=== PATIENT | female | born 2000 | race Caucasian/White ===

== ENCOUNTER 2024-05-01 15:35 | Inpatient (IN) | payer OTHER ==
[2024-05-01] MEDS ORDERED: Carboprost Tromethamine 250 MCG/1 mL Vial IM PRN (16:43)
[2024-05-01] MEDS ORDERED: Misoprostol 200 MCG Tab PO PRN (16:43)
[2024-05-01] MEDS ORDERED: Lidocaine 1% 50 ML MDV INJECT PRN (16:43)
[2024-05-01] MEDS ORDERED: Methylergonovine 0.2 MG/1 ML Amp IM PRN (16:43)
[2024-05-01] MEDS ORDERED: Sodium Chloride 0.9% 20 ML SDV IV PRN (16:43)
[2024-05-01] MEDS ORDERED: Water For Irrigation,Sterile 1,000 ML Container IRR PRN (16:43)
[2024-05-01] MEDS ORDERED: Butorphanol 2 MG/ML SDV IVPUSH PRN (16:43)
[2024-05-01] MEDS ORDERED: Sodium Chloride 0.9% 2.5 ML Syringe FLUSH PRN (16:43)
[2024-05-01] MEDS ORDERED: Sodium Chloride 0.9% 10 ML Syringe FLUSH PRN (16:43)
[2024-05-01] MEDS ORDERED: Tranexamic Acid in NACL,ISO-OS 1,000 MG in Premix Bag 1 BAG IV PRN (16:43)
[2024-05-01] MEDS ORDERED: ePHEDrine 50 MG/ML SDV IVPUSH PRN (16:55)
[2024-05-01] MEDS ORDERED: dexmedeTOMIDine HCl 200 MCG/2 ML SDV EPIDUR SCH (17:00)
[2024-05-01 18:09] LABS: HEMATOCRIT 38.5 % (37.0-47.0); HEMOGLOBIN 12.9 g/dL (12.0-16.0); MEAN CORPUSCULAR HEMOGLOBIN 28.2 pg (28.0-32.0); MEAN CORPUSCULAR HGB CONC 33.5 g/dL (32.0-36.0); MEAN CORPUSCULAR VOLUME 84.1 fL (83.0-99.0); MEAN PLATELET VOLUME 13.1 fL (9.4-12.3); PLATELET COUNT,PLT 192 K/uL (150-400); RED BLOOD CELL COUNT 4.58 M/uL (4.10-5.30); WHITE BLOOD CELL COUNT,WBC 13.55 K/uL (3.9-11.3)
[2024-05-01 18:42] LABS: A/G RATIO 0.7 (0.9-1.6); ALBUMIN 2.8 g/dL (3.4-5.0); BILIRUBIN TOTAL 0.4 mg/dL (0.2-1.0); CALCIUM 9.4 mg/dL (8.5-10.1); CARBON DIOXIDE,CO2 18.9 mmol/L (21.0-32.0); CREATININE 0.5 mg/dL (0.6-1.0); EST CRCL DRUG DOSING (CG) 147.23 mL/min; POTASSIUM,K 3.8 mmol/L (3.5-5.1); PROTEIN TOTAL,TP 7.1 g/dL (6.4-8.2); URIC ACID 4.9 mg/dL (2.6-7.2)
[2024-05-01] MEDS: Ondansetron 4 MG/2 ML SDV IVPUSH PRN (19:50)
[2024-05-01] MEDS: Lactated Ringers 1,000 ML IV SCH (20:23)
[2024-05-01] MEDS: Ropivacaine HCl/PF 400 MG in Premix Bag 1 BAG EPIDUR SCH (20:51)
[2024-05-01] MEDS: Phenylephrine HCl In 0.9% NaCl 1 MG/10 ML Syringe IVPUSH PRN (21:30)
[2024-05-01] MEDS ORDERED: Misoprostol 25 MCG (1/4 of 100 MCG) Tab VAG PRN (21:49)
[2024-05-01] MEDS: Misoprostol 25 MCG (1/4 of 100 MCG) Tab VAG PRN (22:23)
[2024-05-02] MEDS: Oxytocin/0.9 % Sodium Chloride 30 UNIT/500 ML BAG IV SCH (06:32)
[2024-05-02] MEDS ORDERED: Misoprostol 200 MCG Tab RECTAL PRN (07:34)
[2024-05-02] MEDS ORDERED: Benzocaine/Menthol 20%-0.5% Spray 78 GM Cannister TOP PRN (07:34)
[2024-05-02] MEDS ORDERED: Lanolin 100% Cream 7 GM Tube TOP PRN (07:34)
[2024-05-02 07:42] LABS: PH,UMBILICAL ARTERIAL 7.206 (7.18-7.38); PH,UMBILICAL VENOUS 7.332 (7.25-7.45)
[2024-05-02] MEDS: Witch Hazel Medicated Pads 40/Jar TOP PRN (08:17)
[2024-05-02] MEDS: Prenatal Multivitamin with Calcium/Folic Acid/Iron Tab PO SCH (08:17)
[2024-05-02] MEDS: Acetaminophen 500 MG Tab PO PRN (08:17)
[2024-05-02] MEDS: Ibuprofen 800 MG Tab PO PRN (08:18)
[2024-05-02] MEDS: Docusate Sodium 100 MG Cap PO PRN (20:15)
[2024-05-03 06:10] LABS: HEMATOCRIT 30.1 % (37.0-47.0)
== END 2024-05-03 13:10 | disposition home or self-care (01) | DRG 807 ==
LOC: MW.OBCHECK 15:35 → MW.OB 15:37 → MW.OBCHECK 16:42 → MW.OB 16:43 → OBSVTOIN 05-02 06:20 → MW.OB 05-02 10:45
PROVIDERS: ADMIT Obstetrics & Gynecology; ATTEND Obstetrics & Gynecology
PROC: 10E0XZZ Delivery of Products of Conception, External Approach (ICD-10-PCS; principal; 2024-05-02)
PROC: 0KQM0ZZ Repair Perineum Muscle, Open Approach (ICD-10-PCS; 2024-05-02)
PROC: 3E0P7VZ Introduction of Hormone into Female Reproductive, Via Natural or Artificial Opening (ICD-10-PCS; 2024-05-02)
PROC: 3E0R3BZ Introduction of Anesthetic Agent into Spinal Canal, Percutaneous Approach (ICD-10-PCS; 2024-05-02)
PROC: 00HU33Z Insertion of Infusion Device into Spinal Canal, Percutaneous Approach (ICD-10-PCS; 2024-05-02)
PROC: 3E0334Z Introduction of Serum, Toxoid and Vaccine into Peripheral Vein, Percutaneous Approach (ICD-10-PCS; 2024-05-02)
DX: O42.02 Full-term premature rupture of membranes, onset of labor within 24 hours of rupture (principal); Z37.0 Single live birth; O70.1 Second degree perineal laceration during delivery; O77.0 Labor and delivery complicated by meconium in amniotic fluid; O26.893 Other specified pregnancy related conditions, third trimester; Z67.11 Type A blood, Rh negative; O13.4 Gestational [pregnancy-induced] hypertension without significant proteinuria, complicating childbirth; Z3A.39 39 weeks gestation of pregnancy
CPT/HCPCS: 36415; 51702; 59025; 59409; 80053; 82803; 84112; 84550; 85014; 85018; 85027; 85460; 86592; 86850; 86900; 86901; A9270-GY; J2371; J2405; J2590; J2791; J2795; J7120

== ENCOUNTER 2024-10-14 18:36 | Emergency (ER) | payer OTHER ==
[2024-10-14 19:11] LABS: BASOPHILS ABSOLUTE AUTO 0.03 K/uL (0.00-0.20); BASOPHILS PERCENT AUTO 0.3 % (0.0-1.0); EOSINOPHILS ABSOLUTE AUTO 0.05 K/uL (0.00-0.45); EOSINOPHILS PERCENT AUTO 0.5 % (0.0-6.0); IMMATURE GRAN ABSOLUTE AUTO 0.02 K/uL (0.00-0.05); IMMATURE GRAN PERCENT AUTO 0.2 % (0.0-0.4); LYMPHOCYTES ABSOLUTE AUTO 1.57 K/uL (1.00-4.80); LYMPHOCYTES PERCENT AUTO 14.7 % (24.0-44.0); MEAN PLATELET VOLUME 11.3 fL (9.4-12.3); MONOCYTES ABSOLUTE AUTO 0.48 K/uL (0.00-0.80); MONOCYTES PERCENT AUTO 4.5 % (0.0-8.0); NEUTROPHILS ABSOLUTE AUTO 8.51 K/uL (1.80-7.70); NEUTROPHILS PERCENT AUTO 79.8 % (41.0-71.0); NRBC ABSOLUTE 0.00 K/uL (0.00-0.02); NRBC PERCENT 0.0 /100WBC (0.0-0.2); PLATELET COUNT,PLT 224 K/uL (150-400); RED BLOOD CELL COUNT 4.70 M/uL (4.10-5.30); WHITE BLOOD CELL COUNT,WBC 10.66 K/uL (3.9-11.3)
[2024-10-14 21:43] LABS: A/G RATIO 0.8 (0.9-1.6); ALANINE AMINOTRANSFERASE,ALT 11.0 IU/L (14-63); ASPARTATE AMNIOTRANSFERASE,AST 1.0 IU/L (15-37); BILIRUBIN TOTAL 0.2 mg/dL (0.2-1.0); BLOOD UREA NITROGEN,BUN 7.0 mg/dL (7.0-18.0); CARBON DIOXIDE,CO2 23.3 mmol/L (21.0-32.0); CHLORIDE,CL 101.0 mmol/L (98-107); CREATININE 0.6 mg/dL (0.6-1.0); EST CRCL DRUG DOSING (CG) 116.32 mL/min; ESTIMATED GFR 130.0 mL/min (>60); GLUCOSE RANDOM 87.0 mg/dL (74-106); HCG QUANTITATIVE 76704.0 mIU/mL; POTASSIUM,K 3.9 mmol/L (3.5-5.1); PROTEIN TOTAL,TP 7.2 g/dL (6.4-8.2); SODIUM,NA 137.0 mmol/L (136-145)
[2024-10-14 22:09] LABS: GLUCOSE,URINE NEGATIVE (NEGATIVE); OCCULT BLOOD,URINE NEGATIVE (NEGATIVE)
[2024-10-14 22:16] LABS: APPEARANCE,URINE HAZY
[2024-10-14 22:17] LABS: EPITHELIAL CELLS,URINE MODERATE (NONE-FEW)
== END 2024-10-14 22:37 | disposition home or self-care (01) ==
LOC: MW.ED 18:36
DX: N30.90 Cystitis, unspecified without hematuria (principal); J45.909 Unspecified asthma, uncomplicated; Z88.2 Allergy status to sulfonamides; Z79.899 Other long term (current) drug therapy
CPT/HCPCS: 36415; 80053; 81001; 83690; 84702; 85025; 99283; 99284